=== PATIENT | female | born 2000 | race Hispanic/Latino ===

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

== ENCOUNTER 2019-01-13 21:20 | Emergency (ER) | payer OTHER ==
[~2019-01-13] VITALS: Ht 162.6 cm; Wt 72.7 kg
[~2019-01-13 21:20] MED LIST: CIPR-249 PO; NEXP1IMP SC; PYRI1TAB5 PO
[2019-01-13 21:21] VITALS: BP 139/63
[2019-01-13] MEDS ORDERED: IBUP-1114 PO (21:27)
[2019-01-13] MEDS ORDERED: KETOROLAC 60 MG/2 ML VIAL (J1885) IM ONE (22:30)
[2019-01-13 22:36] LABS: URINE PREG TEST NEGATIVE (NEGATIVE)
[2019-01-13] MEDS ORDERED: KETOROLAC 30 MG/ML VIAL (J1885) As Ordered ONE (22:36)
--- NOTE | 2019-01-14 00:20 | REPVR ---
EXAM: CT Lumbar Spine Without Contrast EXAM DATE/TIME: 01/13/2019 11:03 PM CLINICAL HISTORY: 18 years old, female; Pain; Low back pain; Additional info: New l5 appearance TECHNIQUE: Axial computed tomography images of the lumbar spine without intravenous contrast. All CT scans at this facility use at least one of these dose optimization techniques: automated exposure control; mA and/or kV adjustment per patient size (includes targeted exams where dose is matched to clinical indication); or iterative reconstruction. Coronal and sagittal reformatted images were created and reviewed. COMPARISON: CR Spine. Lumbosacral, 01/13/2019 10:37 PM (prior report is not available at the time of this emergent interpretation). CT abdomen/pelvis 09/09/2018. FINDINGS: Slightly accentuated endplate concavity of lumbar vertebral bodies is noted. This is unchanged from 2018 and may be developmental. Any possibility of underlying sickle cell disease to be correlated clinically. Lumbar vertebral body heights and posterior lumbar alignment are otherwise preserved. The facet joints are not subluxed or dislocated. No evidence of spondylolysis. Intervertebral disc spacing and interspinous spacing are maintained. The visualized sacroiliac joints appear symmetric without evidence of erosive change. No paravertebral fluid collection or soft tissue hematoma is seen. T12-L4: No disc displacement is seen. No evidence of central canal or foraminal compromise is seen. L4/L5: There is mild concentric disc bulge slightly effacing the anterior thecal sac. There is mild ligamentum flavum hypertrophy and minimal facet degenerative change. No significant-appearing neural foraminal compromise seen. L5/S1: There is mild posterior central disc displacement slightly effacing the anterior thecal sac. No significant neural foraminal compromise is seen. There is mild ligamentum flavum hypertrophy and mild facet hypertrophy and degenerative change. IMPRESSION: No evidence of an acute osseous abnormality to the lumbar spine. Mild degenerative changes of the lower lumbar spine are noted. Other findings discussed above. Electronically signed by: Parmjit Mcmahan On 01/14/2019 00:19:43 AM
[2019-01-14] MEDS ORDERED: traMADol 50 MG TAB (BULK 4 TAB ED) PO ONE (00:45)
--- NOTE | 2019-01-14 02:02 | REP ---
Clinical: Fall . Technique: AP, lateral, bilateral oblique, and coned-down views. Findings: Alignment and lordosis is maintained. The vertebral bodies including transverse process and spinous processes are intact and normal. There is no evidence for acute fracture / compression injury or subluxation. No evidence for spondylolysis or spondylolisthesis. No significant degenerative change is noted. Impression: Normal lumbosacral spine radiograph series. Electronically Signed by Bandar Rowe MD 01/14/2019 01:54 A
== END 2019-01-14 01:05 | disposition home or self-care (01) ==
LOC: M ED 21:20
DX: M51.36 Other intervertebral disc degeneration, lumbar region (principal)
CPT/HCPCS: 72110; 72131; 84703; 96372; 99282; J1885

== ENCOUNTER 2019-02-01 03:50 | Emergency (ER) | payer OTHER ==
[~2019-02-01] VITALS: Ht 165.1 cm; Wt 70.5 kg
[2019-02-01 03:50] VITALS: BP 136/79
[~2019-02-01 03:50] MED LIST changes: +IBUP-1114 PO
[2019-02-01 04:44] LABS: INFLUENZA A AMPLIFICATION NEGATIVE (NEGATIVE); INFLUENZA B AMPLIFICATION NEGATIVE (NEGATIVE)
[2019-02-01] MEDS ORDERED: ACETAMINOPHEN 325 MG TAB PO ONE (05:15)
== END 2019-02-01 05:41 | disposition home or self-care (01) ==
LOC: M ED 03:50
DX: R50.83 Postvaccination fever (principal)

== ENCOUNTER 2019-03-25 04:30 | Emergency (ER) | payer OTHER ==
[~2019-03-25] VITALS: Ht 162.6 cm; Wt 72.7 kg
[2019-03-25] MEDS ORDERED: GI COCKTAIL 50ML BTL(HYOSCYAMINE/MAALOX/LIDOCAINE VISCOUS)(1:3:1) PO ONE (05:00)
[2019-03-25] MEDS ORDERED: KETOROLAC 30 MG/ML VIAL (J1885) IV ONE (05:30)
[2019-03-25 05:47] LABS: BASO # 0.1 10^3/uL (0.0-0.2); BASO % 0.8 % (0.0-1.0); HEMATOCRIT 39.6 % (36.0-47.0); HEMOGLOBIN 13.6 g/dl (12.0-15.5); LYMPH # 2.4 10^3/uL (1.5-6.5); LYMPH % 36.8 % (24.0-44.0); MEAN CORPUSCULAR HEMOGLOBIN 31.8 pg (27.0-33.0); MEAN CORPUSCULAR HGB CONC 34.3 g/dl (32.0-36.5); MEAN CORPUSCULAR VOLUME 92.5 fl (80.0-96.0); MONO # 0.5 10^3/uL (0.0-0.8); MONO % 8.3 % (0.0-5.0); NEUTROPHILS # 3.4 10^3/uL (1.8-7.7); NEUTROPHILS % 53.8 % (36.0-66.0); PLATELET COUNT, AUTOMATED 236 10^3/uL (150-450); RED BLOOD COUNT 4.28 10^6/uL (4.00-5.40); WHITE BLOOD COUNT 6.4 10^3/uL (4.0-10.0)
--- NOTE | 2019-03-25 06:11 | REP ---
Clinical: Acute chest pain . Comparison: None . Findings: The mediastinum and cardiac silhouette are stable and within normal limits for portable technique. The lung gutierrez are clear without acute consolidation, effusion, or pneumothorax. Skeletal structures are intact. Impression: No acute cardiopulmonary process appreciated. Electronically Signed by Bandar Rowe MD 03/25/2019 06:02 A
[2019-03-25 06:25] LABS: HCG, SERUM QUALITATIVE NEGATIVE (NEGATIVE)
[2019-03-25 06:45] LABS: BLOOD UREA NITROGEN 15 MG/DL (7-18); CALCIUM LEVEL 9.2 MG/DL (8.5-10.1); CARBON DIOXIDE LEVEL 24 MEQ/L (21-32); CHLORIDE LEVEL 106 MEQ/L (98-107); CPK CREATINE PHOSPHOKINASE 1421 U/L (26-192); CREATININE FOR GFR 0.86 MG/DL (0.55-1.30); GLUCOSE, FASTING 86 MG/DL (70-100); MB/CK RELATIVE INDEX 0.16 (< OR =4); POTASSIUM SERUM 3.8 MEQ/L (3.5-5.1); SODIUM LEVEL 139 MEQ/L (136-145); TROPONIN I < 0.02 NG/ML (< 0.10)
[2019-03-25] MEDS ORDERED: ISOVUE-370 76% 100ML VIAL (Q9967) As Ordered ONE (06:54)
[2019-03-25] MEDS ORDERED: NS 1,000 ML IV ONE ×2 (07:00→07:45)
--- NOTE | 2019-03-25 07:16 | REPVR ---
EXAM: CT Angiography Chest With Contrast EXAM DATE/TIME: 03/25/2019 6:50 AM CLINICAL HISTORY: 18 years old, female; Chest pain; Type not specified; Additional info: Chest pain, positive d-dimer TECHNIQUE: Imaging protocol: Axial computed tomographic angiography images of the chest with intravenous contrast using CT angiography protocol. Coronal and sagittal reformatted images were created and reviewed. 3D rendering: MIP reconstructed images were created and reviewed. Radiation optimization: All CT scans at this facility use at least one of these dose optimization techniques: automated exposure control; mA and/or kV adjustment per patient size (includes targeted exams where dose is matched to clinical indication); or iterative reconstruction. Contrast material: ISO; Contrast volume: 75 ml; Contrast route: AC; COMPARISON: CR PORTABLE CHEST X-RAY 03/25/2019 5:02 AM FINDINGS: Pulmonary arteries: No pulmonary embolus is identified. Aorta: The thoracic aorta is nonaneurysmal. Lungs: The lungs are clear. The central airways appear patent. Pleural space: Normal. No pneumothorax. No pleural effusion. Heart: Normal. No cardiomegaly. No pericardial effusion. Upper abdomen: The visualized abdominal structures appear unremarkable. Lymph nodes: Unremarkable. No enlarged lymph nodes. Bones/joints: Unremarkable. No acute fracture. Soft tissues: Unremarkable. IMPRESSION: No pulmonary embolus or other acute thoracic disease identified. Electronically signed by: Michele Cruz On 03/25/2019 07:16:45 AM
--- NOTE | 2019-03-25 09:06 | ECGEPIP ---
Stationary ECG Study [facility] - ED Test Date: 2019-03-25 Pat Name: KENTON ESTRADA Department: Room: - Gender: F Tie Bucker: pmo : 2000 Requested By: SRIRAM Bashir Order Number: [id number] Reading MD: Darrell Singh Measurements Intervals Liberty Rate: 72 P: 2 CA: 132 QRS: 69 QRSD: 90 T: 43 QT: 414 QTc: 453 Interpretive Statements SINUS RHYTHM WITH SINUS ARRHYTHMIA NO PRIORS FOR COMPARISON Electronically Signed On 03-25-2019 9:06:02 EDT by Darrell Singh
[2019-03-25 09:57] VITALS: BP 112/61
== END 2019-03-25 09:59 | disposition home or self-care (01) ==
LOC: M ED 04:30
DX: M62.82 Rhabdomyolysis (principal); I49.9 Cardiac arrhythmia, unspecified
CPT/HCPCS: 71045; 71275; 80048; 82550; 82553; 84484; 84703; 85025; 85379; 93005; 93041; 94760; 96361; 96374; 99285; J1885; Q9967

== ENCOUNTER 2019-06-29 21:05 | Emergency (ER) | payer OTHER ==
[~2019-06-29] VITALS: Ht 162.6 cm; Wt 72.7 kg
[2019-06-29] MEDS ORDERED: NEXP1IMP SC (21:14)
[2019-06-29 21:37] LABS: BASO % 0.5 % (0.0-1.0); HEMATOCRIT 40.8 % (36.0-47.0); HEMOGLOBIN 14.1 g/dl (12.0-15.5); LYMPH % 41.2 % (24.0-44.0); MEAN CORPUSCULAR HEMOGLOBIN 31.6 pg (27.0-33.0); MEAN CORPUSCULAR HGB CONC 34.6 g/dl (32.0-36.5); MEAN CORPUSCULAR VOLUME 91.5 fl (80.0-96.0); MONO # 0.7 10^3/uL (0.0-0.8); MONO % 9.1 % (0.0-5.0); NEUTROPHILS # 3.6 10^3/uL (1.8-7.7); NEUTROPHILS % 48.9 % (36.0-66.0); PLATELET COUNT, AUTOMATED 220 10^3/uL (150-450); RED BLOOD COUNT 4.46 10^6/uL (4.00-5.40); WHITE BLOOD COUNT 7.4 10^3/uL (4.0-10.0)
[2019-06-29 22:07] LABS: ALBUMIN 3.8 GM/DL (3.2-5.2); ALT/SGPT 31 U/L (12-78); BILIRUBIN,TOTAL 0.3 MG/DL (0.2-1.0); BLOOD UREA NITROGEN 18 MG/DL (7-18); CARBON DIOXIDE LEVEL 25 MEQ/L (21-32); CHLORIDE LEVEL 108 MEQ/L (98-107); CREATININE FOR GFR 0.82 MG/DL (0.55-1.30); GLUCOSE, FASTING 89 MG/DL (70-100); POTASSIUM SERUM 4.1 MEQ/L (3.5-5.1); SODIUM LEVEL 140 MEQ/L (136-145); TOTAL PROTEIN 7.1 GM/DL (6.4-8.2)
[2019-06-29 22:54] LABS: BILIRUBIN,DIRECT 0.1 MG/DL (0.0-0.2); LIPASE 159 U/L (73-393)
[2019-06-29] MEDS ORDERED: KETOROLAC 60 MG/2 ML VIAL (J1885) IM ONE (23:00)
[2019-06-29] MEDS ORDERED: KETOROLAC 30 MG/ML VIAL (J1885) As Ordered ONE (23:00)
[2019-06-29] MEDS ORDERED: KETO10TAB PO (23:03)
[2019-06-29 23:04] LABS: HCG, SERUM QUALITATIVE NEGATIVE (NEGATIVE)
[2019-06-29] MEDS ORDERED: KETOROLAC 30 MG/ML VIAL (J1885) IV ONE (23:15)
[2019-06-29 23:29] VITALS: BP 128/64
== END 2019-06-29 23:32 | disposition home or self-care (01) ==
LOC: M ED 21:05
DX: N92.0 Excessive and frequent menstruation with regular cycle (principal); Z79.3 Long term (current) use of hormonal contraceptives
CPT/HCPCS: 80053; 82248; 83690; 84702; 84703; 85025; 96374; 99284; J1885

== ENCOUNTER 2019-09-25 20:41 | Emergency (ER) | payer OTHER ==
[~2019-09-25] VITALS: Ht 162.6 cm; Wt 70.5 kg
[~2019-09-25 20:41] MED LIST changes: +KETO10TAB PO
[2019-09-25 21:13] LABS: EOS % 0.1 % (0.0-3.0); HEMATOCRIT 41.4 % (36.0-47.0); HEMOGLOBIN 13.9 g/dl (12.0-15.5); LYMPH % 34.8 % (24.0-44.0); MEAN CORPUSCULAR HGB CONC 33.6 g/dl (32.0-36.5); MEAN CORPUSCULAR VOLUME 92.4 fl (80.0-96.0); MONO # 0.8 10^3/uL (0.0-0.8); MONO % 8.9 % (0.0-5.0); NEUTROPHILS # 4.8 10^3/uL (1.5-8.5); NEUTROPHILS % 56.1 % (36.0-66.0); PLATELET COUNT, AUTOMATED 277 10^3/uL (150-450); RED BLOOD COUNT 4.48 10^6/uL (4.00-5.40); WHITE BLOOD COUNT 8.5 10^3/uL (4.0-10.0)
[2019-09-25 21:32] LABS: ALBUMIN 3.9 GM/DL (3.2-5.2); ALT/SGPT 27 U/L (12-78); BILIRUBIN,DIRECT < 0.1 MG/DL (0.0-0.2); BILIRUBIN,TOTAL 0.3 MG/DL (0.2-1.0); BLOOD UREA NITROGEN 23 MG/DL (7-18); CALCIUM LEVEL 9.6 MG/DL (8.5-10.1); CARBON DIOXIDE LEVEL 25 MEQ/L (21-32); CHLORIDE LEVEL 107 MEQ/L (98-107); CREATININE FOR GFR 0.77 MG/DL (0.55-1.30); GLUCOSE, FASTING 84 MG/DL (70-100); LIPASE 198 U/L (73-393); POTASSIUM SERUM 4.2 MEQ/L (3.5-5.1); SODIUM LEVEL 139 MEQ/L (136-145); TOTAL PROTEIN 7.4 GM/DL (6.4-8.2)
[2019-09-25 21:34] LABS: HCG, SERUM QUALITATIVE NEGATIVE (NEGATIVE)
[2019-09-25 21:51] LABS: ERYTHROCYTE SEDIMENTATION RATE 11 mm/hr (0-20)
[2019-09-25] MEDS ORDERED: ISOVUE-370 76% 100ML VIAL (Q9967) As Ordered ONE (22:07)
--- NOTE | 2019-09-25 22:56 | REPVR ---
PROCEDURE INFORMATION: Exam: CT Abdomen And Pelvis With Contrast Exam date and time: 09/25/2019 10:19 PM Age: 19 years old Clinical history: Abdominal pain; Periumbilical; Additional info: Umbilical pain; R/O appy TECHNIQUE: Imaging protocol: Computed tomography of the abdomen and pelvis with intravenous contrast. Radiation optimization: All CT scans at this facility use at least one of these dose optimization techniques: automated exposure control; mA and/or kV adjustment per patient size (includes targeted exams where dose is matched to clinical indication); or iterative reconstruction. Contrast material: ISOVUE 370; Contrast volume: 100 ml; Contrast route: IV; COMPARISON: CT ABD PELVIS W/O CONTRAST 09/09/2018 11:56 PM FINDINGS: Liver: Normal. No mass. Gallbladder and bile ducts: Normal. No calcified stones. No ductal dilation. Pancreas: Normal. No ductal dilation. Spleen: Normal. No splenomegaly. Adrenals: Normal. No mass. Kidneys and ureters: Normal. No hydronephrosis. Stomach and bowel: Unremarkable. No obstruction. No mucosal thickening. Appendix: No evidence of appendicitis. Intraperitoneal space: Unremarkable. No free air. No significant fluid collection. Vasculature: Unremarkable. No abdominal aortic aneurysm. Lymph nodes: Unremarkable. No enlarged lymph nodes. Bladder: Unremarkable as visualized. Reproductive: Unremarkable as visualized. Bones/joints: Unremarkable. No acute fracture. Soft tissues: Unremarkable. IMPRESSION: No acute findings. Electronically signed by: Kimo Levi On 09/25/2019 22:55:46 PM
[2019-09-25] MEDS ORDERED: DICY20TA11 PO (23:09)
[2019-09-25 23:15] VITALS: BP 119/73
[2019-09-25] MEDS ORDERED: DICYCLOMINE 10 MG CAP PO ONE (23:15)
== END 2019-09-25 23:42 | disposition home or self-care (01) ==
LOC: M ED 20:41
DX: R10.9 Unspecified abdominal pain (principal); R19.7 Diarrhea, unspecified
CPT/HCPCS: 36415; 74177; 80048; 80076; 81001; 83690; 84703; 85025; 85652; 86140; 99284; Q9967

== ENCOUNTER 2019-11-17 05:25 | Emergency (ER) | payer OTHER ==
[~2019-11-17] VITALS: Ht 162.6 cm; Wt 68.2 kg
[~2019-11-17 05:25] MED LIST changes: +DICY20TA11 PO
[2019-11-17 06:29] LABS: INFLUENZA A AMPLIFICATION NEGATIVE (NEGATIVE); INFLUENZA B AMPLIFICATION NEGATIVE (NEGATIVE)
--- NOTE | 2019-11-17 07:18 | REP ---
Clinical: Cough and shortness of breath . Comparison: 03/25/2019 . Technique: PA and lateral. Findings: The mediastinum and cardiac silhouette are normal. The lung gutierrez are clear and without acute consolidation, effusion, or pneumothorax. The skeletal structures are intact and normal. Impression: 1. No acute cardiopulmonary process. Electronically Signed by Bandar Rowe MD 11/17/2019 07:10 A
[2019-11-17 07:54] VITALS: BP 109/66
== END 2019-11-17 07:56 | disposition home or self-care (01) ==
LOC: M ED 05:25
DX: J32.0 Chronic maxillary sinusitis (principal)

== ENCOUNTER 2020-12-15 19:56 | Emergency (ER) | payer OTHER ==
[~2020-12-15] VITALS: Ht 162.6 cm; Wt 67.6 kg
--- OUTSIDE RECORDS SUMMARY | 2020-12-15 20:04 | CCD ---
Author Author [facility] Organization [facility] Address Unknown Phone Unavailable Support Name Relationship Address Phone SILVINO SHARMA Next Of Kin [address] [place], [place] [id number] [facility] Next Of Kin [address] [place] [address] Unavailable BAYLEE KIRBY Next Of Kin [address] [place] [address] Re-disclosure Warning The records that you are about to access may contain information from federally-assisted alcohol or drug abuse programs. If such information is present, then the following federally mandated warning applies: This information has been disclosed to you from records protected by federal confidentiality rules (42 CFR part 2). The federal rules prohibit you from making any further disclosure of this information unless further disclosure is expressly permitted by the written consent of the person to whom it pertains or as otherwise permitted by 42 CFR part 2. A general authorization for the release of medical or other information is NOT sufficient for this purpose. The Federal rules restrict any use of the information to criminally investigate or prosecute any alcohol or drug abuse patient.The records that you are about to access may contain highly sensitive health information, the redisclosure of which is protected by Article 27-F of the [facility] Public Health law. If you continue you may have access to information: Regarding HIV / AIDS; Provided by facilities licensed or operated by the [facility] Office of Mental Health; or Provided by the [facility] Office for People With Developmental Disabilities. If such information is present, then the following [facility] mandated warning applies: This information has been disclosed to you from confidential records which are protected by state law. State law prohibits you from making any further disclosure of this information without the specific written consent of the person to whom it pertains, or as otherwise permitted by law. Any unauthorized further disclosure in violation of state law may result in a fine or custodial sentence or both. A general authorization for the release of medical or other information is NOT sufficient authorization for further disc losure. Insurance Providers Payer name Policy type / Coverage type Policy ID Covered constitution party ID Covered constitution party's relationship to mendez Policy Mendez Plan Information [facility] ACTIVE DUTY [id number] SP [id number] [facility]IVE [facility] [id number] SP [id number]
--- OUTSIDE RECORDS SUMMARY | 2020-12-15 21:29 | CCD ---
Author Author [facility] Organization [facility] Address Unknown Phone Unavailable Support Name Relationship Address Phone SILVINO SHARMA Next Of Kin [address] [place], [place] [id number] [facility] Next Of Kin [address] [place] [address] Unavailable BAYLEE KIRBY Next Of Kin [address] [place] [address] Re-disclosure Warning The records that you are [...] is protected by Article 27-F of the [facility] Public Health law. If you continue you may have access to information: Regarding HIV / AIDS; Provided by facilities licensed or operated by the [facility] Office of Mental Health; or Provided by the [facility] Office for People With Developmental Disabilities. If such information is present, then the following [facility] mandated warning applies: This information has been [...] law may result in a fine or penitentiary sentence or both. A general authorization for the release of medical or other information is NOT sufficient authorization for further disc losure. Insurance Providers Payer name Policy type / Coverage type Policy ID Covered green party ID Covered green party's relationship to mendez Policy Mendez Plan Information [facility] ACTIVE DUTY [id number] SP [id number] [facility] ACTIVE [facility] [id number] SP [id number]
--- NOTE | 2020-12-15 22:04 | REPVR ---
PROCEDURE INFORMATION: Exam: US Nonobstetric Pelvis; Complete Exam date and time: 12/15/2020 9:23 PM Age: 20 years old Clinical indication: Pelvic pain; Patient HX: Patient had iud placed this morning; Additional info: Pelvic pain; Assess iud TECHNIQUE: Imaging protocol: Transabdominal pelvic nonobstetric ultrasound. Complete exam. Real time ultrasound with image documentation. COMPARISON: CT ABD/PEL W/IV CONTRAST ONLY 09/25/2019 10:10 PM FINDINGS: Uterus/cervix: The uterus measures 6.7 cm in length by 2.5 cm in thickness by 3.7 cm in transverse dimension. The IUD appears to be within the endometrium. The uterus is anteverted. Right adnexa: The right ovary measures 2.3 cm in length by 1.7 cm in thickness. There are small follicular type cysts of the right ovary. There is vascular flow of the right ovary with no evidence of torsion. Left adnexa: The left ovary measures 2.4 cm in length by 1.6 cm in thickness and there is vascular flow of the left ovary with no evidence of torsion. There is vascular flow of the left ovary with no evidence of torsion. Intraperitoneal space: There is a small amount of free fluid within the lower pelvis. Urinary bladder: There is a small amount of urine in the urinary bladder. IMPRESSION: 1. The IUD is within the endometrial cavity and appearing within the range of normal. 2. Follicular cysts of the left ovary and a small amount free fluid in the pelvis. Electronically signed by: Sukhdev Goetz On 12/15/2020 22:04:13 PM
[2020-12-15 22:11] VITALS: BP 116/74
[2020-12-15] MEDS ORDERED: OXYCODONE/APAP 5MG/325MG(BULK FOR ED) 1 TABLET PO ONE (22:15)
== END 2020-12-15 22:20 | disposition home or self-care (01) ==
LOC: M ED 19:56
DX: N83.02 Follicular cyst of left ovary (principal); T83.84XA Pain due to genitourinary prosthetic devices, implants and grafts, initial encounter

== ENCOUNTER 2021-04-26 07:24 | Emergency (ER) | payer OTHER ==
[~2021-04-26] VITALS: Ht 162.6 cm; Wt 69.8 kg
[2021-04-26] MEDS ORDERED: IBUP-1022 PO (07:29)
[2021-04-26] MEDS ORDERED: ACETAMINOPHEN 500 MG TAB PO ONE (08:15)
[2021-04-26] MEDS ORDERED: VALT1TAB PO (09:09)
[2021-04-26 09:26] VITALS: BP 126/79
== END 2021-04-26 09:28 | disposition home or self-care (01) ==
LOC: M ED 07:24
DX: J02.9 Acute pharyngitis, unspecified (principal); B00.1 Herpesviral vesicular dermatitis
CPT/HCPCS: 87880; 99284; U0003

== ENCOUNTER 2021-06-09 06:03 | Emergency (ER) | payer OTHER ==
[~2021-06-09] VITALS: Ht 162.6 cm; Wt 73.0 kg
[~2021-06-09 06:03] MED LIST changes: -DICY20TA11 PO; +DICY20TA20 PO; +IBUP-1022 PO; +VALT1TAB PO
[2021-06-09 06:59] LABS: BASO % 0.1 % (0.0-1.0); EOS % 0.1 % (0.0-3.0); HEMATOCRIT 36.7 % (36.0-47.0); HEMOGLOBIN 12.1 g/dl (12.0-15.5); LYMPH # 2.4 10^3/uL (1.5-5.0); LYMPH % 16.9 % (24.0-44.0); MEAN CORPUSCULAR HEMOGLOBIN 31.8 pg (27.0-33.0); MEAN CORPUSCULAR VOLUME 96.6 fl (80.0-96.0); MONO # 1.1 10^3/uL (0.0-0.8); MONO % 7.4 % (2.0-8.0); NEUTROPHILS # 10.7 10^3/uL (1.5-8.5); PLATELET COUNT, AUTOMATED 275 10^3/uL (150-450); WHITE BLOOD COUNT 14.3 10^3/uL (4.0-10.0)
[2021-06-09] MEDS ORDERED: NS 1,000 ML IV ONE (07:15)
[2021-06-09] MEDS ORDERED: cefTRIAXone SOD 1 GM in D5W MINI-BAG PLUS 50 ML IV ONE (07:15)
[2021-06-09] MEDS ORDERED: KETOROLAC 30 MG/ML 1ML VIAL IV ONE (07:15)
[2021-06-09] MEDS ORDERED: CIPR500T39 PO (11:15)
[2021-06-09] MEDS ORDERED: PHEN-372 PO (11:15)
[2021-06-09 11:34] VITALS: BP 102/56
== END 2021-06-09 11:42 | disposition home or self-care (01) ==
LOC: M ED 06:03
DX: N39.0 Urinary tract infection, site not specified (principal); N10 Acute pyelonephritis; R31.9 Hematuria, unspecified; Z97.5 Presence of (intrauterine) contraceptive device; F17.200 Nicotine dependence, unspecified, uncomplicated
CPT/HCPCS: 76775; 76830; 76856; 80047; 81001; 84702; 85025; 87088; 87186; 93976; 96361; 96365; 96375; 99284; J0696; J1885

== ENCOUNTER 2021-06-15 19:19 | Emergency (ER) | payer OTHER ==
[~2021-06-15] VITALS: Ht 162.6 cm; Wt 72.5 kg
[~2021-06-15 19:19] MED LIST changes: +CIPR500T39 PO; +DICY20TA11 PO; -DICY20TA20 PO; +PHEN-372 PO
[2021-06-15] MEDS ORDERED: ONDANSETRON 4MG/2ML VIAL IV ONE (22:40)
[2021-06-15] MEDS ORDERED: KETOROLAC 30 MG/ML 1ML VIAL IV ONE (22:40)
[2021-06-16 00:09] LABS: ALBUMIN 3.4 GM/DL (3.2-5.2); ALT/SGPT 18 U/L (12-78); BILIRUBIN,DIRECT < 0.1 MG/DL (0.0-0.2); BILIRUBIN,TOTAL 0.2 MG/DL (0.2-1.0); LIPASE 133 U/L (73-393); TOTAL PROTEIN 6.8 GM/DL (6.4-8.2)
[2021-06-16 00:14] LABS: BASO % 0.2 % (0.0-1.0); EOS % 0.1 % (0.0-3.0); HEMATOCRIT 36.5 % (36.0-47.0); HEMOGLOBIN 12.2 g/dl (12.0-15.5); LYMPH # 2.4 10^3/uL (1.5-5.0); LYMPH % 19.3 % (24.0-44.0); MEAN CORPUSCULAR HEMOGLOBIN 32.2 pg (27.0-33.0); MEAN CORPUSCULAR HGB CONC 33.4 g/dl (32.0-36.5); MEAN CORPUSCULAR VOLUME 96.3 fl (80.0-96.0); MONO % 8.2 % (2.0-8.0); NEUTROPHILS % 71.7 % (36.0-66.0); PLATELET COUNT, AUTOMATED 308 10^3/uL (150-450); RED BLOOD COUNT 3.79 10^6/uL (4.00-5.40); WHITE BLOOD COUNT 12.5 10^3/uL (4.0-10.0)
--- NOTE | 2021-06-16 00:19 | REPVR ---
PROCEDURE INFORMATION: Exam: US Nonobstetric Pelvis; Complete Exam date and time: 06/15/2021 11:04 PM Age: 20 years old Clinical indication: Pelvic pain; Additional info: Pelvic pain, iud malpositioned TECHNIQUE: Imaging protocol: Transabdominal pelvic nonobstetric ultrasound. Complete exam. Real time ultrasound with image documentation. COMPARISON: US PELVIC NON-OB COMPLETE 06/09/2021 8:39 AM FINDINGS: Uterus/cervix: Uterus measures 7.9 x 3.4 x 4.5 cm. Endometrial thickness is normal at 7 mm. There is an IUD in the lower uterine segment. The IUD appears rotated on the longitudinal images. No uterine or endometrial mass. Right adnexa: Ovary is normal. No mass. Normal blood flow. Left adnexa: Ovary is normal. No mass. Normal blood flow. Intraperitoneal space: No intraperitoneal fluid. IMPRESSION: Low lying, rotated IUD in the lower uterine segment. Electronically signed by: Kimo Levi On 06/16/2021 00:19:08 AM
[2021-06-16 01:21] LABS: HCG, SERUM QUANTITATIVE < 1.0 MIU/ML
[2021-06-16] MEDS ORDERED: cefTRIAXone SOD 1 GM in D5W MINI-BAG PLUS 50 ML IV ONE (01:55)
[2021-06-16] MEDS ORDERED: PHENAZOPYRIDINE 100 MG TAB PO ONE (01:55)
[2021-06-16] MEDS ORDERED: CIPR-249 PO (01:59)
[2021-06-16] MEDS ORDERED: NAPR-837 PO (01:59)
[2021-06-16] MEDS ORDERED: PYRI1TAB5 PO (01:59)
[2021-06-16 02:41] VITALS: BP 102/54
[2021-06-16 04:13] LABS: GC DNA AMPLIFICATION NEGATIVE (NEGATIVE)
== END 2021-06-16 02:44 | disposition home or self-care (01) ==
LOC: M ED 19:19
DX: N30.00 Acute cystitis without hematuria (principal); T83.32XA Displacement of intrauterine contraceptive device, initial encounter; R10.2 Pelvic and perineal pain; Z79.899 Other long term (current) drug therapy
CPT/HCPCS: 76830; 76856; 80047; 80076; 81001; 83690; 84702; 85025; 87088; 87186; 87661; 93976; 96365; 96375; 99284; J0696; J1885; J2405

== ENCOUNTER 2021-08-19 16:30 | Emergency (ER) | payer OTHER ==
[~2021-08-19] VITALS: Ht 162.6 cm; Wt 72.6 kg
[~2021-08-19 16:30] MED LIST changes: +NAPR-837 PO
--- OUTSIDE RECORDS SUMMARY | 2021-08-19 16:36 | CCD ---
Author Author [facility] Organization [facility] Address Unknown Phone Unavailable Support Name Relationship Address Phone SILVINO SHARMA Next Of Kin [address] [place] [address] [facility] Next Of Kin [address] [place] [address] Unavailable BAYLEE KIRBY Next Of Kin [address] [place] [address] SILVINO SHARMA ECON [address] [place] [address] Unavailable Re-disclosure Warning The records that you are [...] is protected by Article 27-F of the [facility] Public Health law. If you continue you may have access to information: Regarding HIV / AIDS; Provided by facilities licensed or operated by the [facility] Office of Mental Health; or Provided by the [facility] Office for People With Developmental Disabilities. If such information is present, then the following [facility] mandated warning applies: This information has [...] law may result in a fine or prison sentence or both. A general authorization for the release of medical or other information is NOT sufficient authorization for further disc losure. Immunizations Vaccine Date Status Description Data Source(s) COVID-19 VACCINE Pfizer 12/29/2020 12:00:00 AM EST completed [facility] Vaccine Series Complete: NOThis Data was Submitted to [facility] Via [employer] Medications No Information Insurance Providers Payer name Policy type / Coverage type Policy ID Covered green party ID Covered green party's relationship to mendez Policy Mendez Plan Information [facility] ACTIVE DUTY [id number] [facility] [id number] Problems, Conditions, and Diagnoses No Information Surgeries/Procedures No Information Results ID Date Data Source [id number] 04/26/2021 09:21:00 AM EDT [facility] Name Value Range Interpretation Code Description Data Jessica rce(s) Supporting Document(s) SARS-CoV-2 (COVID-19) RNA [Presence] in Respiratory specimen by DEBORAH with probe detection Not Detected [facility] This lab was ordered by [facility] and reported by [facility]. ID Date Data Source [id number] 04/26/2021 08:21:00 AM EDT [facility] Name Value Range Interpretation Code Description Data Jessica rce(s) Supporting Document(s) SARS COVID ANTIGEN NEGATIVE [facility] This lab was ordered by CLEMENTE jorge nd reported by [facility]. Procedure Social History No Information
[2021-08-19 21:14] VITALS: BP 120/75
--- OUTSIDE RECORDS SUMMARY | 2021-08-19 21:25 | CCD ---
Author Author [facility] Organization [facility] Address Unknown Phone Unavailable Support Name Relationship Address Phone SILVINO SHARMA Next Of Kin [address] [place] [address] [facility] Next Of Kin [address] [place] [address] Unavailable BAYLEE KIRBY Next Of Kin [address] [place] [address] SILVINO SHARMA ECON [address] [place] [address] Unavailable Re-disclosure Warning The records that you [...] is protected by Article 27-F of the [facility] Public Health law. If you continue you may have access to information: Regarding HIV / AIDS; Provided by facilities licensed or operated by the [facility] Office of Mental Health; or Provided by the [facility] Office for People With Developmental Disabilities. If such information is present, then the following [facility] mandated warning applies: This information has [...] law may result in a fine or usp sentence or both. A general authorization for the release of medical or other information is NOT sufficient authorization for further disc losure. Immunizations Vaccine Date Status Description Data Source(s) COVID-19 VACCINE Pfizer 12/29/2020 12:00:00 AM EST completed [facility] Vaccine Series Complete: NOThis Data was Submitted to [facility] Via [employer]. Medications No Information Insurance Providers Payer name Policy type / Coverage type Policy ID Covered green party ID Covered green party's relationship to mendez Policy Mendez Plan Information [facility] ACTIVE DUTY [id number] [facility] [id number] Problems, Conditions, and Diagnoses No Information Surgeries/Procedures No Information Results ID Date Data Source [id number] 04/26/2021 09:21:00 AM EDT [facility] Name Value Range Interpretation Code Description Data Jessica rce(s) Supporting Document(s) SARS-CoV-2 (COVID-19) RNA [Presence] in Respiratory specimen by DEBORAH with probe detection Not Detected [facility] This lab was ordered by [facility] and reported by [employer]. ID Date Data Source [id number] 04/26/2021 08:21:00 AM EDT [facility] Name Value Range Interpretation Code Description Data Jessica rce(s) Supporting Document(s) SARS COVID ANTIGEN NEGATIVE [facility] This lab was ordered by CLEMENTE jorge nd reported by [facility]. Procedure Social History No Information
== END 2021-08-19 21:39 | disposition home or self-care (01) ==
LOC: M ED 16:30
DX: Z20.822 Contact with and (suspected) exposure to COVID-19 (principal); J02.9 Acute pharyngitis, unspecified
CPT/HCPCS: 87880; 99283; U0003